=== PATIENT | female | born 1965 | race Caucasian/White ===

== ENCOUNTER 2017-01-13 11:26 | Observation (INO) | payer OTHER ==
[~2017-01-13] VITALS: Ht 160 cm; Wt 76.5 kg
[2017-01-13 12:58] LABS: HEMATOCRIT 48.3 % (36.0-46.0); MCH 28.6 PG (29.0-34.0); MCHC 33.7 G/DL (30.0-36.0); MCV 84.9 FL (83-99); MEAN PLAT.VOLUME 10.9 uM^3 (9.5-12.4); PLATELET COUNT 372 K/uL (156-360); RBC DIS.WIDTH-CV 13.3 % (11.8-14.6); RBC DIS.WIDTH-SD 41.2 % (39-53); RED BLOOD COUNT 5.69 M/uL (3.80-5.20)
[2017-01-13 13:04] LABS: ADD MIUA? YES; BILIRUBIN NEGATIVE; BLOOD NEGATIVE; GLUCOSE (STRIP) NEGATIVE; KETONES 20; LEUKOCYTES LARGE; NITRITE NEGATIVE; PROTEIN (STRIP) 30; SPECIFIC GRAVITY 1.027 (1.000-1.030); UROBILINOGEN 0.2 MG/DL (0.2-1.0)
[2017-01-13 13:07] LABS: COLOR YELLOW ((YELLOW))
[2017-01-13 13:09] LABS: CHLORIDE 109 mEq/L (99-109); POTASSIUM 4.3 mEq/L (3.7-5.4); SODIUM 141 mEq/L (136-147)
[2017-01-13 13:10] LABS: BACTERIA NONE SEEN /HPF; EPITHELIAL CELLS 1+ /HPF; MUCUS TRACE /LPF; RED BLOOD CELLS 0-5 /HPF (0-5); UCUL ADDED? NO; WHITE BLOOD CELLS 20-30 /HPF (0-5)
[2017-01-13 13:12] LABS: GLUCOSE 108 mg/dL (70-99)
[2017-01-13 13:13] LABS: ANION GAP 14 MEQ/L (2-14)
[2017-01-13 13:14] LABS: TOTAL BILIRUBIN 0.7 mg/dL (0.0-1.0)
[2017-01-13 13:15] LABS: ALKALINE PHOSPHATASE 123 IU/L (3-129)
[2017-01-13 13:16] LABS: UREA NITROGEN (BUN) 13 mg/dL (9-23)
[2017-01-13 13:24] LABS: GFR ESTIMATE (CALCULATED) > 59 mL/min/
[2017-01-13 13:30] LABS: QUANTITATIVE HCG < 4.0 MIU/ML
[2017-01-13] MEDS ORDERED: LYRICA75 MG PO (13:49)
[2017-01-13] MEDS ORDERED: CYMBALTA60 MG PO (13:49)
[2017-01-13] MEDS ORDERED: AMBIEN CR12.5 MG PO (13:50)
[2017-01-13 13:59] LABS: LIPASE 27 U/L (1.0-51.0)
[2017-01-13] MEDS ORDERED: LYRICA100 MG PO (17:17)
[2017-01-13 18:22] LABS: TROP-I INTERPRETATION NEGATIVE; TROPONIN-I < 0.01 ng/mL (0.0-0.30)
[2017-01-13 19:53] VITALS: BP 148/83
[2017-01-13 23:03] LABS: C DIFF TOXIN NEGATIVE (NEGATIVE); PROBE CHECK PASS; SPECIMEN PROCESSING CONTROL PASS
[2017-01-14 00:46] VITALS: BP 119/69
[2017-01-14 01:16] LABS: TROP-I INTERPRETATION NEGATIVE; TROPONIN-I < 0.01 ng/mL (0.0-0.30)
[2017-01-14 04:00] VITALS: BP 145/69
[2017-01-14 06:51] LABS: TROP-I INTERPRETATION NEGATIVE; TROPONIN-I < 0.01 ng/mL (0.0-0.30)
[2017-01-14 08:03] LABS: CHLORIDE 113 mEq/L (99-109); HEMATOCRIT 43.3 % (36.0-46.0); MCH 28.9 PG (29.0-34.0); MCV 87.7 FL (83-99); MEAN PLAT.VOLUME 11.5 uM^3 (9.5-12.4); PLATELET COUNT 302 K/uL (156-360); POTASSIUM 3.8 mEq/L (3.7-5.4); RBC DIS.WIDTH-CV 13.4 % (11.8-14.6); RBC DIS.WIDTH-SD 42.5 % (39-53); RED BLOOD COUNT 4.94 M/uL (3.80-5.20); SODIUM 143 mEq/L (136-147); WHITE BLOOD COUNT 9.5 K/uL (4.1-10.2)
[2017-01-14 08:05] LABS: GLUCOSE 84 mg/dL (70-99)
[2017-01-14 08:06] LABS: ANION GAP 12 MEQ/L (2-14)
[2017-01-14 08:09] LABS: GFR ESTIMATE (CALCULATED) > 59 mL/min/
[2017-01-14 08:10] LABS: UREA NITROGEN (BUN) 9 mg/dL (9-23)
[2017-01-14] MEDS ORDERED: PROMETHAZINE HC25 M1 PO (08:59)
[2017-01-14 09:41] VITALS: BP 124/76
== END 2017-01-14 11:17 | disposition home or self-care (01) ==
LOC: EME 11:26 → 5WEST 17:12 → EDOF 17:12 → 5WEST 19:41
PROVIDERS: Internal Medicine
DX: R11.2 Nausea with vomiting, unspecified (principal); E86.0 Dehydration; R10.84 Generalized abdominal pain; M79.7 Fibromyalgia; Z87.891 Personal history of nicotine dependence
CPT/HCPCS: 74020; 74176; 76705; 80048; 80053; 81003; 83690; 84484; 84702; 85027; 87086; 87493; 87506; 99281; 99285; G0378; J1650; J2405; J2765; J7030; J7120; S0028